=== PATIENT | male | born 1990 | race African-American/Black ===

== ENCOUNTER 2020-09-18 10:14 | Emergency (ER) | payer SELFPAY ==
--- NOTE | 2020-09-18 10:48 | Event Note ---
ED Screening Note Date of service: 09/18/20 Time: 10:47 ED Screening Note: Patient complains of sudden onset of left lower quadrant pain this morning No history of abdominal surgeries Denies vomiting or diarrhea This initial assessment/diagnostic orders/clinical plan/treatment(s) is/are subject to change based on patients health status, clinical progression and re- assessment by fellow clinical providers in the ED. Further treatment and workup at subsequent clinical providers discretion. Patient/guardian urged not to elope from the ED as their condition may be serious if not clinically assessed and managed. Initial orders include: Labs
[2020-09-18 11:17] LABS: Bilirubin,Urine NEG (Negative); Blood,Urine LG (Negative); Color,Urine Yellow (Yellow); Urobilinogen,Urine < 2.0 mg/dL (<2.0)
[2020-09-18 11:25] LABS: Basophils # (Auto) 0.1 K/mm3 (0.0-0.1); Eosinophils # (Auto) 0.1 K/mm3 (0.0-0.4); Eosinophils % (Auto) 1.2 % (0.0-4.3); Monocytes # (Auto) 0.6 K/mm3 (0.0-0.8)
[2020-09-18 12:06] LABS: BUN/Creatinine Ratio TNR
[2020-09-18 12:07] LABS: Alanine Aminotransferase TNR units/L (7-56); Albumin TNR g/dL (3.9-5)
[2020-09-18 12:08] LABS: Basophils % (Auto) 1.6 % (0.0-1.8); Hematocrit 48.3 % (35.5-45.6); Lymphocytes # (Auto) 2.3 K/mm3 (1.2-5.4); Lymphocytes % (Auto) 25.1 % (13.4-35.0); Mean Corpuscular Volume 95 fl (84-94); Platelet Count 202 K/mm3 (140-440); Red Blood Count 5.08 M/mm3 (3.65-5.03); Red Cell Distribution Width 13.4 % (13.2-15.2)
[2020-09-18 12:10] LABS: Hemoglobin TNR gm/dl (11.8-15.2); Mean Corpuscular HGB Conc TNR % (32-34)
[2020-09-18] MEDS ORDERED: SODIUM CHLORIDE 0.9% 1000 ML 1,000 ML IV ONE (12:38)
[2020-09-18] MEDS ORDERED: KETOROLAC 30 MG/1 ML INJ IV ONE (12:39)
[2020-09-18 12:54] LABS: Blood Urea Nitrogen TNR mg/dL (9-20); Calcium TNR mg/dL (8.4-10.2)
[2020-09-18 12:55] LABS: Hemolysis Index TNR
[2020-09-18 13:57] LABS: Calcium 8.8 mg/dL (8.4-10.2)
--- NOTE | 2020-09-18 14:07 | Cat Scan Report ---
CT ABDOMEN AND PELVIS WITHOUT CONTRAST HISTORY: LEFT FLANK PAIN BLOOD IN URINE. COMPARISON: None. TECHNIQUE: CT images of the abdomen and pelvis were obtained without administration of intravenous co ntrast. All CT scans at this location are performed using CT dose reduction for ALARA by means of au tomated exposure control. FINDINGS: Lungs/bones: Lung bases are clear. Calcified nodule left lower lung. Abdomen/pelvis: There is diffuse fatty infiltration the liver. Spleen, adrenal glands, pancreas, and upper GI tract appear normal. There is inflammatory change surrounding the left kidney and left uret er. There is a distal left ureteral stone measuring 3 to 4 mm left hydronephrosis. Right kidney appea rs normal. No acute bone findings are seen. IMPRESSION: 1. 3 to 4 mm distal left ureteral stone with mild left hydroureteronephrosis. 2. Fatty infiltration the liver. Signer Name: Pedrito Fraga MD Signed: 09/18/2020 2:02 PM Workstation Name: [id number]
--- NOTE | 2020-09-18 14:24 | Emergency Department Report ---
ED General Adult HPI - General Chief complaint: Abdominal Pain Stated complaint: (L)LOWER SIDE PAIN/STOMACH Time Seen by Provider: 09/18/20 10:47 Source: patient Mode of arrival: Ambulatory Limitations: No Limitations - History of Present Illness Initial comments: 30-year-old male complaining of left flank pain radiating to the left lower abdomen started this morning he denies nausea vomiting no chest pain no shortness of breath. No fever or chills. he is able to urinate without difficulty. Patient states he has had previous episodes like this but has never been diagnosed with kidney stones. He is awake alert in no acute distress -: This morning Location: left (Flank) Radiation: abdomen (Left lower abdomen) Severity scale (0 -10): 4 Consistency: constant Improves with: none Worsens with: none Associated Symptoms: denies other symptoms. denies: confusion, chest pain, cough, headaches, loss of appetite, malaise, nausea/vomiting, shortness of breath, syncope, weakness Treatments Prior to Arrival: none - Related Data Previous Rx's Medication Instructions Recorded Last Taken Type Ibuprofen [Motrin] 800 mg PO Q8HR PRN #21 tablet 09/18/20 Unknown Rx Tamsulosin [Flomax] 0.4 mg PO QDAY #10 cap 09/18/20 Unknown Rx levoFLOXacin [Levaquin TAB] 500 mg PO DAILY #5 tablet 09/18/20 Unknown Rx Allergies Allergy/AdvReac Type Severity Reaction Status Date / Time No Known Allergies Allergy Unverified 09/18/20 10:31 ED Review of Systems ROS: Stated complaint: (L)LOWER SIDE PAIN/STOMACH Other details as noted in HPI Comment: All other systems reviewed and negative Constitutional: denies: chills, fever ENT: denies: ear pain, throat pain Respiratory: no symptoms reported Cardiovascular: denies: chest pain, palpitations Endocrine: no symptoms reported Gastrointestinal: other (Left flank pain radiating to the left lower abdomen). denies: constipation Genitourinary: denies: dysuria, frequency, hematuria, discharge Musculoskeletal: denies: as per HPI, back pain Skin: denies: rash, lesions Neurological: denies: headache, weakness Psychiatric: denies: anxiety ED Past Medical Hx - Past Medical History Previous Medical History?: No - Surgical History Additional Surgical History: LEG/ FINGER - Medications Home Medications: Home Medications Medication Instructions Recorded Confirmed Last Taken Type Ibuprofen [Motrin] 800 mg PO Q8HR PRN #21 tablet 09/18/20 Unknown Rx Tamsulosin [Flomax] 0.4 mg PO QDAY #10 cap 09/18/20 Unknown Rx levoFLOXacin [Levaquin TAB] 500 mg PO DAILY #5 tablet 09/18/20 Unknown Rx ED Physical Exam - General Limitations: No Limitations General appearance: alert, in no apparent distress - Eye Eye exam: Present: normal appearance - ENT ENT exam: Present: normal exam - Neck Neck exam: Present: normal inspection - Respiratory Respiratory exam: Present: normal lung sounds bilaterally. Absent: respiratory distress, wheezes, rales - Cardiovascular Cardiovascular Exam: Present: regular rate, normal heart sounds - GI/Abdominal GI/Abdominal exam: Present: soft, normal bowel sounds - exam: Present: normal inspection. Absent: testicular tenderness, urethral discharge, scrotal swelling External exam: Present: normal external exam. Absent: lesions - Extremities Exam Extremities exam: Present: normal inspection - Back Exam Back exam: Present: CVA tenderness (L) - Neurological Exam Neurological exam: Present: alert, oriented X3 - Skin Skin exam: Present: warm, dry, intact ED Course Vital Signs 09/18/20 09/18/20 10:34 15:24 Temperature 98.3 F 98.0 F Pulse Rate 77 75 Respiratory 20 18 Rate Blood Pressure 157/93 Blood Pressure 153/89 [Right] O2 Sat by Pulse 94 100 Oximetry - Reevaluation(s) Reevaluation #1: 09/18/20 14:24 Patient in no acute distress I discussed all findings with patient he has did received pain relief from Toradol. Findings of CAT scan discussed with patient including the kidney stone and the fatty liver patient states he drinks alcohol occasionally but not on a regular basis he also states that he drinks lots of Coke sodas. Plan of care discussed with patient which includes oral hydration antibiotic Flomax follow-up with urologist and limiting soda intake 09/18/20 14:26 ED Medical Decision Making - Lab Data Result diagrams: 09/18/20 11:07 09/18/20 13:30 Lab Results 09/18/20 09/18/20 09/18/20 Range/Units 11:07 11:07 13:30 WBC 9.1 (4.5-11.0) K/mm3 RBC 5.08 H (3.65-5.03) M/mm3 Hgb TNR Hct 48.3 H (35.5-45.6) % MCV 95 H (84-94) fl MCH TNR MCHC TNR RDW 13.4 (13.2-15.2) % Plt Count 202 (140-440) K/mm3 Lymph % (Auto) 25.1 (13.4-35.0) % [place] % (Auto) 6.0 (0.0-7.3) % Eos % (Auto) 1.2 (0.0-4.3) % Baso % (Auto) 1.6 (0.0-1.8) % Lymph # (Auto) 2.3 (1.2-5.4) K/mm3 [place] # (Auto) 0.6 (0.0-0.8) K/mm3 Eos # (Auto) 0.1 (0.0-0.4) K/mm3 Baso # (Auto) 0.1 (0.0-0.1) K/mm3 Seg Neutrophils % 66.2 (40.0-70.0) % Seg Neutrophils # 6.5 (1.8-7.7) K/mm3 Sodium TNR 136 L Potassium TNR 5.3 H Chloride TNR 104.9 Carbon Dioxide TNR 9 L* Anion Gap TNR 27 BUN TNR 15 Creatinine TNR 8.3 H Estimated GFR TNR 8 BUN/Creatinine Ratio TNR 2 Glucose TNR 97 Calcium TNR 8.8 Total Bilirubin TNR 0.40 AST TNR 51 H ALT TNR 5 L Alkaline Phosphatase TNR 81 Total Protein TNR 6.9 Albumin TNR 3.9 Albumin/Globulin Ratio TNR 1.3 Lipase TNR 22 Urine Color (Yellow) Urine Turbidity (Clear) Urine pH (5.0-7.0) Ur Specific [place] (1.003-1.030) Urine Protein (Negative) mg/dL Urine Glucose (UA) (Negative) mg/dL Urine Ketones (Negative) mg/dL Urine Blood (Negative) Urine Nitrite (Negative) Urine Bilirubin (Negative) Urine Urobilinogen (<2.0) mg/dL Ur Leukocyte Esterase (Negative) Urine WBC (Auto) (0.0-6.0) /HPF Urine RBC (Auto) (0.0-6.0) /HPF 07/24/21 Range/Units Unknown WBC (4.5-11.0) K/mm3 RBC (3.65-5.03) M/mm3 Hgb Hct (35.5-45.6) % MCV (84-94) fl MCH MCHC RDW (13.2-15.2) % Plt Count (140-440) K/mm3 Lymph % (Auto) (13.4-35.0) % [place] % (Auto) (0.0-7.3) % Eos % (Auto) (0.0-4.3) % Baso % (Auto) (0.0-1.8) % Lymph # (Auto) (1.2-5.4) K/mm3 [place] # (Auto) (0.0-0.8) K/mm3 Eos # (Auto) (0.0-0.4) K/mm3 Baso # (Auto) (0.0-0.1) K/mm3 Seg Neutrophils % (40.0-70.0) % Seg Neutrophils # (1.8-7.7) K/mm3 Sodium Potassium Chloride Carbon Dioxide Anion Gap BUN Creatinine Estimated GFR BUN/Creatinine Ratio Glucose Calcium Total Bilirubin AST ALT Alkaline Phosphatase Total Protein Albumin Albumin/Globulin Ratio Lipase Urine Color Yellow (Yellow) Urine Turbidity Clear (Clear) Urine pH 5.0 (5.0-7.0) Ur Specific [place] 1.023 (1.003-1.030) Urine Protein 30 mg/dl (Negative) mg/dL Urine Glucose (UA) Neg (Negative) mg/dL Urine Ketones Neg (Negative) mg/dL Urine Blood Lg (Negative) Urine Nitrite Neg (Negative) Urine Bilirubin Neg (Negative) Urine Urobilinogen < 2.0 (<2.0) mg/dL Ur Leukocyte Esterase Neg (Negative) Urine WBC (Auto) 2.0 (0.0-6.0) /HPF Urine RBC (Auto) 2.0 (0.0-6.0) /HPF - Radiology Data Radiology results: report reviewed TECHNIQUE: CT images of the abdomen and pelvis were obtained without administration of intravenous contrast. All CT scans at this location are performed using CT dose reduction for ALARA by means of automated exposure control. FINDINGS: Lungs/bones: Lung bases are clear. Calcified nodule left lower lung. Abdomen/pelvis: There is diffuse fatty infiltration the liver. Spleen, adrenal glands, pancreas, and upper GI tract appear normal. There is inflammatory change surrounding the left kidney and left ureter. There is a distal left ureteral stone measuring 3 to 4 mm left h ydronephrosis. Right kidney appears normal. No acute bone findings are seen. IMPRESSION: 1. 3 to 4 mm distal left ureteral stone with mild left hydroureteronephrosis. 2. Fatty infiltration the liver. - Medical Decision Making 30-year-old male presents to the emergency room with complaints of left flank pain radiating to the left groin he denies vomiting he has no fever no chills. CT of the abdomen pelvis reveals 3 to 4 mm distal left ureteral stone with mild left hydroureteronephrosis. Fatty infiltration the liver. I discussed the findings of the CAT scan with patient and the need for further follow-up with urologist and or PCP. Levaquin Flomax and ibuprofen prescribed for outpatient treatment. Patient verbalizes understanding of all instructions. He is well appearing and in no distress and safe to be discharged home - Differential Diagnosis Kidney stone cystitis Critical Care Time: No Critical care attestation.: If time is entered above; I have spent that time in minutes in the direct care of this critically ill patient, excluding procedure time. ED Disposition Clinical Impression: Left renal stone, Fatty liver Disposition: - TO HOME OR SELFCARE Is pt being admited?: No Does the pt Need Aspirin: No Condition: Stable Instructions: Low-Purine Eating Plan, Kidney Stones, [id number], Fatty Liver Disease Additional Instructions: Drink plenty fluids limit your sodium intake. Take all medications as prescribed. Follow-up with your primary care doctor or urologist in 3 to 5 days. Return to the emergency room if you are unable to pass urine if you de velop fever or worsening pain. Prescriptions: Tamsulosin [Flomax] 0.4 mg PO QDAY #10 cap levoFLOXacin [Levaquin TAB] 500 mg PO DAILY #5 tablet Ibuprofen [Motrin] 800 mg PO Q8HR PRN #21 tablet PRN Reason: Pain , Severe (7-10) Referrals: WILLAM MEYER MD [Primary Care Provider] - 3-5 Days SIMA RIBEIRO MD [Staff Physician] - 3-5 Days Time of Disposition: 14:32
[2020-09-18 15:10] LABS: Albumin 3.9 g/dL (3.9-5)
[2020-09-18 15:25] VITALS: BP 153/89
== END 2020-09-18 15:24 | disposition home or self-care (01) ==
LOC: ED 10:14
DX: K76.0 Fatty (change of) liver, not elsewhere classified (principal); N20.0 Calculus of kidney; Z79.899 Other long term (current) drug therapy; Z98.890 Other specified postprocedural states
CPT/HCPCS: 36415; 74176; 80053; 81001; 83690; 85025; 96361; 96374; 99284; J1885; J7030